=== PATIENT | female | born 1975 ===

== ENCOUNTER 2022-07-04 09:42 | Emergency (ER) | payer BC, SELFPAY ==
--- NOTE | ~2022-07-04 | CT_ITS ---
EXAMINATION: CT HEAD WITHOUT CONTRAST CLINICAL INFORMATION: Status post fall with head strike. COMPARISON: None available. TECHNIQUE: Contiguous axial imaging was performed from the skull base to vertex without intravenous administration of contrast. Coronal and sagittal reformatted images were obtained. This CT examination was performed using dose optimization techniques as appropriate, variously including the following: *Automated exposure control *Adjustment of mA and/or kV according to patient size (this includes techniques or standardized protocols for targeted exams where dose is matched to indication/reason for exam; i.e. extremities or head) *Use of iterative reconstruction technique DLP: 693 mGy-cm FINDINGS: There is mild widening of the cortical sulci and associated ventriculomegaly. The lateral ventricles are symmetrical. The third and fourth ventricles are in their normal midline position. The basilar and prepontine cisterns are unremarkable. Minimal periventricular microvascular changes are seen. There is no acute intra or extracerebral abnormality. There is no mass effect or midline shift. Partial visualization of small subgaleal hematoma in the left high parietal region without acute underlying abnormality. Sections through the bony calvarium are unremarkable. The orbits are intact. The paranasal sinuses are clear. The in left mastoid antrostomy. The mastoid air cells are clear. CT/CT head/brain wo IV con IMPRESSION: 1. No acute intracranial pathology. 2. Partial visualization of small left high parietal subgaleal hematoma without acute underlying abnormality. Correlate with physical exam.
[2022-07-04 09:56] VITALS: BP 132/98; PULSE 112; RESP 19; TEMP 36.7; O2SAT 98; BMI 20.7
[2022-07-04 12:41] LABS: MANUAL DIFF FLAG NO
[2022-07-04 12:45] LABS: Basophils Absolute Auto 0.1 X10*3/uL (0.0-0.2); Basophils Percent Auto 0.8 % (0-2); Hematocrit 31.4 % (37.0-47.0); Imm Gran Abs Auto 0.02 X10*3/uL (0.00-0.03); Imm Gran Pct Auto 0.3 % (0.0-0.4); Lymphocytes Absolute Auto 1.2 X10*3/uL (1.2-4.9); Lymphocytes Percent Auto 19.1 % (20-40); Mean Corpuscular Hemoglobin 33.4 pg (27.0-33.0); Mean Corpuscular Volume 95.4 fL (80.0-98.0); Mean Platelet Volume 9.1 fL (9.4-12.3); Monocytes Absolute Auto 0.5 X10*3/uL (0.1-1.2); Monocytes Percent Auto 7.9 % (2-11); Neutrophils Absolute Auto 4.4 x10*3/uL (2.0-8.3); Neutrophils Percent Auto 71.9 % (45-73); Red Blood Count 3.29 X10*6/uL (4.20-5.50); Red Cell Distribution Width 11.2 % (11.0-16.0); White Blood Count 6.2 X10*3/uL (4.8-10.8)
[2022-07-04 12:59] LABS: Alanine Aminotransferase 84 U/L (0-31); Albumin Level 4.1 g/dL (3.5-5.0); Alkaline Phosphatase 78 U/L (39-117); Anion Gap 18 (12-20); Aspartate Amino Transferase 232 U/L (5-31); Bilirubin Direct 0.2 mg/dL (0.0-0.5); Bilirubin Total 0.6 mg/dL (0.0-1.0); Blood Urea Nitrogen 7 mg/dL (9-16); Calcium 8.5 mg/dL (8.4-10.2); Carbon Dioxide 22 mmol/L (22-29); Chloride 101 mmol/L (96-108); Creatinine Clr Calc Pharmacy 108.5; Estimated Glomerular Filt Rate > 60; Ethanol 360 mg/dL; Glucose Random 88 mg/dL (60-115); Magnesium 1.8 mg/dL (1.6-2.6); Potassium 4.4 mmol/L (3.3-5.1); Sodium 137 mmol/L (135-145); Total Protein 6.3 g/dL (6.5-8.0)
[2022-07-04 13:14] LABS: Platelet Count 86 X10*3/uL (160-400)
[2022-07-04 14:39] VITALS: BP 96/57; PULSE 97; RESP 16; O2SAT 99
--- NOTE | 2022-07-04 15:07 | ED.GENADULT ---
HPI - General Adult General Chief complaint: Fall Stated complaint: fell head lac loss of blood Time Seen by Provider: 07/04/22 12:49 Source: patient, family, RN notes reviewed and old records reviewed Limitations: no limitations History of Present Illness HPI narrative: 47 years old female is here today after sustaining fall. Patient's reports that she was drinking last night and fell, hit back of her head on wooden coffee table. Patient was able to get herself to bed. Family in to check on her today and found large amount of blood next to the coffee table. Patient reports headache. Denies any nausea or vomiting. Patient reports that she has been drinking on and off since 2018 after coming back from rehab. Patient reports that she drinks wine. Patient denies any abdominal pain or discomfort. Denies any diarrhea, melena, hematochezia, unintentional weight loss or ribbon like stools. Patient denies any dyspepsia, dysphagia or odynophagia. Patient denies any fever or chills. Denies presyncope, syncope, chest pain or shortness of breath with or without exertion. Onset (ago): hour(s) Related Data Allergies Allergy/AdvReac Type Severity Reaction Status Date / Time Unable to Assess Allergy Unverified 07/04/22 12:28 Review of Systems Review of Systems: Review of systems Constitutional : No Weight loss, No Fever, No Chills, No Night Sweats, No Fatigue, No Malaise ENT/Mouth : No Hearing loss, No Ear Pain, No Nasal Congestion, No Sinus Pain, No Hoarseness, No sore throat, No Rhinorrhea, No Swallowing Difficulty Eyes: No Eye Pain, No Swelling, No Redness, No Foreign Body, No Discharge, No Vision Changes Cardiovascular : No Chest Pain, No SOB, No Dyspnea on Exertion, No Orthopnea, No Edema, No Palpitations Respiratory : No Cough, No Sputum, No Wheezing, No Smoke Exposure, No Dyspnea Gastrointestinal : No Nausea, No Vomiting, No Diarrhea, No Constipation, No abdominal Pain, No Hematochezia, No Melena Genitourinary : no irregular bleeding, No Dysuria, No Urinary Frequency, No Hematuria, No Urinary Incontinence, No Urgency, No Flank Pain, No Urinary Flow Changes, No Hesitancy Musculoskeletal : No joint pain, No Myalgias, No Joint Swelling Skin : No Skin Lesions, No rash, posterior head lack Neuro : No Weakness, No Numbness, No Paresthesias, No Loss of Consciousness, No Dizziness, No Headache Psych : No Anxiety/Panic, Depression, No SI/HI/AH/VH, No Social Issues, Heme/Lymph: No Bruising, No Bleeding,No Lymphadenopathy Endocrine : No Polyuria, No Polydipsia, No Temperature Intolerance [facility] Social History Social History Advance Directives: No Physical Exam ED Vital Signs: Vital Signs - 24 hr 07/04/22 09:56 07/04/22 14:39 07/04/22 15:14 Temperature 98.1 F Pulse Rate 112 H 97 89 Respiratory Rate 19 16 16 Blood Pressure 132/98 H 96/57 L 113/77 Pulse Oximetry 98 99 100 Oxygen Delivery Method Room Air Room Air Room Air BMI result Body Mass Index 20.7 Const Other: Physical assessment Appearance: Alert. Oriented X3. No acute distress.?? Head: 6 cm laceration to posterior head, No Evans signs noted. No raccoon eyes noted Eyes: PERRLA. EOMI. Conjunctiva and sclera normal. Eyelids normal.?? ENT: EAC normal. TM's Normal. Pharynx normal. Uvula midline. Moist mucous membranes. ? No trismus noted.? No drooling noted.? No muffled voice noted. Neck: Normal inspection. Neck supple. FROM. No adenopathy. Thyroid Normal. No meningeal signs. No neck mass noted. CVS: Normal heart rate and rhythm. Heart sound normal. No murmurs noted. Pulses normal throughout. Respiratory: No respiratory distress. Painless inspiration. Breath sounds normal. No wheezes/rales/rhonchi noted. Chest nontender. ? No accessory muscle usage noted or decreased air movement noted. Abdomen: Soft and nontender. Bowel sounds normal in all 4 quadrants. No distention noted.? No organomegaly noted.? No visible injury noted. Back:? No CVA tenderness.? Full range of motion noted. Skin: Skin warm and dry.? Normal skin color.? Normal skin turgor. No rashes/lesions/lacerations noted. Extremities: No lower extremity edema. ? Extremities exhibit normal range of motion.? Extremities nontender. Neuro: Oriented X 3.? No motor deficit.? No sensory deficit.? Reflexes normal. Course Course Course Narrative: 47 years old female is here today after sustaining fall. Patient's reports that she was drinking last night and fell, hit back of her head on wooden coffee table. Patient was able to get herself to bed. Family in to check on her today and found large amount of blood next to the coffee table. Patient reports headache. Denies any nausea or vomiting. Patient reports that she has been drinking on and off since 2018 after coming back from rehab. Patient reports that she drinks wine. Patient denies any abdominal pain or discomfort. Denies any diarrhea, melena, hematochezia, unintentional weight loss or ribbon like stools. Patient denies any dyspepsia, dysphagia or odynophagia. Patient denies any fever or chills. Denies presyncope, syncope, chest pain or shortness of breath with or without exertion. Will check basic labs CBC, chemistry, alcohol level, tao Reevaluation(s) Reevaluation #1: ETOH 360, AST 2-3 2, ALT 84. Normal kidney function. Mild anemia. Patient denies rectal bleed. Continues to have no abdominal pain. Awaiting CT scan results. Eight tao to posterior head Reevaluation #2: Patient tolerated p.o. fluids denies any nausea or vomiting. Patient denies any headache. Patient's sister will be taking her home. List of detox places will be given to the patient. Patient was encouraged to stop drinking and return to emergency department if she has blurry vision, headache, dizziness, confusion, syncope. Procedures Laceration Laceration 1: Site: scalp and other (Posterior) Size (cm): 6 Description: linear and clean Depth: simple, single layer Pre-repair: wound explored Skin layer closed with: other (8 [place] ) Medical Decision Making Medical Decision Making MDM Narrative: 47 years old female is here today after sustaining fall. Patient's reports that she was drinking last night and fell, hit back of her head on wooden coffee table. Patient was able to get herself to bed. Family in to check on her today and found large amount of blood next to the coffee table. Patient reports headache. Denies any nausea or vomiting. Patient reports that she has been drinking on and off since 2018 after coming back from rehab. Patient reports that she drinks wine. Patient denies any abdominal pain or discomfort. Denies any diarrhea, melena, hematochezia, unintentional weight loss or ribbon like stools. Patient denies any dyspepsia, dysphagia or odynophagia. Patient denies any fever or chills. Denies presyncope, syncope, chest pain or shortness of breath with or without exertion. Will check basic labs CBC, chemistry, alcohol level, tao Differential Diagnosis Differential Diagnoses: The differential diagnosis associated with the presentation includes Acute head bleed, contusion Lab Data MDM Lab Attestation statement: I reviewed the patient's lab results. 07/04/22 12:35 07/04/22 12:35 Labs: Lab Results 07/04/22 07/04/22 07/04/22 Range/Units 12:35 12:35 15:46 WBC 6.2 (4.8-10.8) X10*3/uL RBC 3.29 L (4.20-5.50) X10*6/uL Hgb 11.0 L (12.0-16.0) g/dl Hct 31.4 L (37.0-47.0) % MCV 95.4 (80.0-98.0) fL MCH 33.4 H (27.0-33.0) pg MCHC 35.0 (31.0-35.0) g/dl RDW 11.2 (11.0-16.0) % Plt Count 86 L (160-400) X10*3/uL MPV 9.1 L (9.4-12.3) fL Immature Gran % (Auto) 0.3 (0.0-0.4) % Neut % (Auto) 71.9 (45-73) % Lymph % (Auto) 19.1 L (20-40) % Armstrong % (Auto) 7.9 (2-11) % Eos % (Auto) 0.0 (0-4) % Baso % (Auto) 0.8 (0-2) % Lymph # (Auto) 1.2 (1.2-4.9) X10*3/uL Armstrong # (Auto) 0.5 (0.1-1.2) X10*3/uL Eos # (Auto) 0.0 (0.0-0.4) X10*3/uL Baso # (Auto) 0.1 (0.0-0.2) X10*3/uL Abs Immat Gran (auto) 0.02 (0.00-0.03) X10*3/uL Absolute Neuts (auto) 4.4 (2.0-8.3) x10*3/uL Absolute Nucleated RBC 0.000 (0.0-0.012) X10*3/uL Nucleated RBC % (auto) 0.0 (0.0-0.2) /100WBC Sodium 137 (135-145) mmol/L Potassium 4.4 (3.3-5.1) mmol/L Chloride 101 (96-108) mmol/L Carbon Dioxide 22 (22-29) mmol/L Anion Gap 18 (12-20) BUN 7 L (9-16) mg/dL Creatinine 0.58 (0.5-1.4) mg/dL Estim Creat Clear Calc 108.5 Estimated GFR > 60 Random Glucose 88 (60-115) mg/dL Calcium 8.5 (8.4-10.2) mg/dL Magnesium 1.8 (1.6-2.6) mg/dL Total Bilirubin 0.6 (0.0-1.0) mg/dL Direct Bilirubin 0.2 (0.0-0.5) mg/dL AST 232 H (5-31) U/L ALT 84 H (0-31) U/L Alkaline Phosphatase 78 (39-117) U/L Total Protein 6.3 L (6.5-8.0) g/dL Albumin 4.1 (3.5-5.0) g/dL Urine Opiates Screen Not Detected (Not Detect) Urine Fentanyl Screen Not Detected (Not Detect) Ur Barbiturates Screen Not Detected (Not Detect) Ur Phencyclidine Scrn Not Detected (Not Detect) Ur Amphetamines Screen Not Detected (Not Detect) U Benzodiazepines Scrn Not Detected (Not Detect) Urine Cocaine Screen Not Detected (Not Detect) U Marijuana (THC) Screen Not Detected (Not Detect) Ethyl Alcohol 360 H* mg/dL Independent Interpretation I performed an independent interpretation of an: CT Scan (Head) Radiology Impression Discussion of test interpretation with radiology: I have reviewed the radiologist's reading. Radiologist Impression: FINDINGS: There is mild widening of the cortical sulci and associated ventriculomegaly. The lateral ventricles are symmetrical. The third and fourth ventricles are in their normal midline position. The basilar and prepontine cisterns are unremarkable. Minimal periventricular microvascular changes are seen. There is no acute intra or extracerebral abnormality. There is no mass effect or midline shift. Partial visualization of small subgaleal hematoma in the left high parietal region without acute underlying abnormality. Sections through the bony calvarium are unremarkable. The orbits are intact. The paranasal sinuses are clear. The in left mastoid antrostomy. The mastoid air cells are clear. CT/CT head/brain wo IV con IMPRESSION: 1.? No acute intracranial pathology. 2.? Partial visualization of small left high parietal subgaleal hematoma without acute underlying abnormality. Correlate with physical exam. Discharge Plan Discharge Clinical Impression: Head injury, acute, without loss of consciousness, Fall against object, EtOH dependence Patient Disposition: Home, Self-Care Instructions: Head Injury (ED), Alcohol Withdrawal (ED), Alcohol Dependence (ED) Additional Instructions: You were seen here today after falling and hitting your had. You had very high alcohol level. Eight tao was placed to close youe laceration. Make sure you keep the area clean and dry. Return to ED if any of the tao will come lose or fall out. You may return to ED in 10 days to remove the tao. Please make sure that you apply ice for the next 72 hours to the area. Your liver enzymes were also elevated. Please make sure that you try to stop drinking alcohol. We will be giving you detox places you can go and detox properly. Please return to ED if you will have any nausea, vomiting, double vision, dizziness, presyncope, syncopy or any other concerning symptoms. Referrals: Radha Hua MD [Primary Care Provider] - Interventions: ED Discharge Assessment Last Done: 07/04/22 16:20 Discharge Date/Time: 07/04/22 16:24
[2022-07-04 15:14] VITALS: BP 113/77; PULSE 89; RESP 16; O2SAT 100
[2022-07-04 16:06] LABS: Amphetamine Screen Urine Not Detected (Not Detect); Barbiturates, Urine Not Detected (Not Detect); Benzodiazepines Screen Urine Not Detected (Not Detect); Cannabinoid Screen Urine Not Detected (Not Detect); Cocaine Screen Urine Not Detected (Not Detect); Fentanyl, urine Not Detected (Not Detect); Opiate Screen Urine Not Detected (Not Detect); Phencyclidine Screen Urine Not Detected (Not Detect)
== END 2022-07-04 16:24 | disposition home or self-care (01) ==
PROVIDERS: Physician Assistant; Emergency Provider Emergency Medicine; PCP Internal Medicine
DX: S09.90XA Unspecified injury of head, initial encounter (principal); R51.9 Headache, unspecified; F10.29 Alcohol dependence with unspecified alcohol-induced disorder; Y90.8 Blood alcohol level of 240 mg/100 ml or more; W01.10XA Fall on same level from slipping, tripping and stumbling with subsequent striking against unspecified object, initial encounter; Y93.9 Activity, unspecified; Y92.9 Unspecified place or not applicable; Y99.9 Unspecified external cause status; Z79.899 Other long term (current) drug therapy; Z71.41 Alcohol abuse counseling and surveillance of alcoholic
CPT/HCPCS: 36415; 70450; 80048; 80076; 80307; 82077; 83735; 85025; 99284

== ENCOUNTER 2022-07-19 09:48 | Emergency (ER) | payer BC, SELFPAY ==
[2022-07-19 09:49] VITALS: BP 150/101; PULSE 100; RESP 18; TEMP 36.8; O2SAT 98; BMI 21.2
--- NOTE | 2022-07-19 09:55 | ED_ITS ---
HPI - General Adult General Chief complaint: General Medical Stated complaint: Suture Removal Time Seen by Provider: 07/19/22 09:51 History of Present Illness HPI narrative: Patient presents for staple removal from scalp for wound sustained 3 weeks ago Denies any redness denies any pain denies any discharge from wound no complaints Related Data Allergies Allergy/AdvReac Type Severity Reaction Status Date / Time Sulfa (Sulfonamide Allergy Hives Verified 07/19/22 09:50 Antibiotics) PMFSH Past Medical History Source: nursing notes reviewed Physical Exam ED Vital Signs: Vital Signs - 24 hr 07/19/22 09:49 Temperature 98.3 F Pulse Rate 100 Respiratory Rate 18 Blood Pressure 150/101 H Pulse Oximetry 98 Oxygen Delivery Method Room Air BMI result Body Mass Index 21.2 General appearance no distress comp cooperative The scalp is examined the tao are in place there is no surrounding erythema no swelling no discharge no evidence of infection Course Course Course Narrative: [place] are easily removed with no wound dehiscence Discharge Plan Discharge Clinical Impression: Removal of tao Patient Disposition: Home, Self-Care Additional Instructions: No sign of any infection [place] removed, okay all activities
--- NOTE | 2022-07-20 01:39 | PC.NURSE ---
student services director reviewing charts, it appears pt was discharged by JILLIAN Collier 07.19.22 around or about 1000.
== END 2022-07-19 10:00 | disposition home or self-care (01) ==
PROVIDERS: Emergency Provider Emergency Medicine; PCP Internal Medicine
DX: Z48.02 Encounter for removal of sutures (principal)
CPT/HCPCS: 99282

== ENCOUNTER 2022-09-18 11:20 | Emergency (ER) | payer BC, SELFPAY ==
[2022-09-18 11:24] VITALS: BP 152/102; PULSE 118; RESP 18; TEMP 37.1; O2SAT 97; BMI 21.9
--- NOTE | 2022-09-18 11:24 | ED_ITS ---
HPI - Head Injury General Chief complaint: General Medical Stated complaint: Memory Loss S/P Head Injury Time Seen by Provider: 09/18/22 14:49 Source: patient and family (Father, Don) Mode of arrival: ambulatory Limitations: no limitations History of Present Illness HPI Narrative: 47-year-old female who presents emergency department for evaluation of alcohol use disorder. The patient is here with her father. The father is concerned the patient is having difficulty with her thought process and is concerned that she is continuing to drink heavily. The patient was recently in detox at [place] but since getting out continue to drink alcohol. She states she drinks at least 5 glasses of wine per day and she was drinking earlier today. The patient states that she has been on naloxone in the past and this has helped her cravings but she states that she was not compliant with the medication and continue to drink alcohol. The patient did have a head injury and fall in June 2022 and was seen here in the emergency department with a negative CT scan. Patient denied headache, nausea, vomiting, chest pain, shortness of breath, fever, chills. Related Data Allergies Allergy/AdvReac Type Severity Reaction Status Date / Time Sulfa (Sulfonamide Allergy Hives Verified 07/19/22 09:50 Antibiotics) Review of Systems Review of Systems: Yes all other systems are reviewed and are negative [facility] Past Medical History Attestation statement: The following information was validated with the patient. [facility] Narrative: Past medical history: Alcohol use disorders. Social history: The patient admits to drinking alcohol this morning using drink alcohol daily. Social History Social History Alcohol intake: current Alcohol intake frequency: 3 or more drinks per day Smoked in Last 30 Days: Yes Use of substances other than those prescribed or required for medical reasons: No Advance Directives: No Advance Directives Information Provided: Yes Physical Exam Vital Signs: Vital Signs: Last Vital Signs Temp 98.7 F 09/18/22 11:24 Pulse 120 H 09/18/22 14:45 Resp 18 09/18/22 14:45 BP 159/110 H 09/18/22 14:45 Pulse Ox 97 09/18/22 14:45 O2 Del Method Room Air 09/18/22 14:45 BMI result Body Mass Index 21.9 Vital signs revealed an elevated pulse of 120 and elevated blood pressure of 159/110. General: Awake, alert, female patient she is very anxious, she is agitated, she does not want to be in the emergency department. She kept telling me that she needs to leave to slate picker her daughter. Head: Normocephalic atraumatic Respiratory: Patient does not appear to be in respiratory distress Neuro: Patient is able stand and walk in the emergency department, her gait is normal. Course Course Course Narrative: RME: 47yo F w/no sig PMHx c/o head injury 1mos ago requiring 8 tao, followed by going to detox, now father reports patient not acting herself. Patient c/o diffuse myalgias. Admits is still currently drinking, admits to 4 glasses of wine daily, last drink this AM. +hx ETOH withdrawal, denies seizures. is interested in help, not necessarily detox. denies SI appears intoxicated labs, UA, TORRES, CARE team consult ordered Full HPI, ROS and PE to be performed by primary ED provider. Medical Decision Making Medical Decision Making [facility] Narrative: 47-year-old female who was brought to the emergency department by her father for evaluation of alcohol use disorder. Father is concerned that the patient is having disordered thoughts but he also is aware that she is drinking daily. The patient's examination was unremarkable. Patient's laboratory evaluation revealed a low platelet count of a [id number]. Patient an elevated AST and ALT of 125 and 66-she has had similar elevations in the past most likely caused by her alcohol use disorder. Patient's blood ethanol level was 406. I did discuss these abnormalities with the patient and the patient's father. The father was asking if there is a medication that would help reduce the patient's craving however I told both of them that these medications do not work unless the patient can achieve sobriety. Given the significant amount of alcohol the patient drinks and the fact that she had such a high alcohol level was still functioning, she has a significant alcohol use disorder therefore she will need to get into a detox program that can help her withdrawal. The father asked me to sign the patient's family medical leave paperwork and I did do this. The patient became very anxious and walked out of the emergency department ho wever she is not driving and her father brought her to the emergency department and he states that he will drive her home. Differential Diagnosis Differential diagnosis includes was not limited to electrolyte abnormality, anemia, alcohol intoxication Lab Data [facility] Lab Attestation statement: I reviewed the patient's lab results. See MDM 09/18/22 11:41 09/18/22 11:41 Labs: Lab Results 09/18/22 09/18/22 09/18/22 Range/Units 11:41 11:41 11:41 WBC 7.9 (4.8-10.8) X10*3/uL RBC 4.46 D (4.20-5.50) X10*6/uL Hgb 14.5 D (12.0-16.0) g/dl Hct 41.7 D (37.0-47.0) % MCV 93.5 (80.0-98.0) fL MCH 32.5 (27.0-33.0) pg MCHC 34.8 (31.0-35.0) g/dl RDW 11.9 (11.0-16.0) % Plt Count 139 L D (160-400) X10*3/uL MPV 9.7 (9.4-12.3) fL Immature Gran % (Auto) 0.1 (0.0-0.4) % Neut % (Auto) 67.0 (45-73) % Lymph % (Auto) 25.8 (20-40) % [place] % (Auto) 6.0 (2-11) % Eos % (Auto) 0.5 (0-4) % Baso % (Auto) 0.6 (0-2) % Lymph # (Auto) 2.0 (1.2-4.9) X10*3/uL [place] # (Auto) 0.5 (0.1-1.2) X10*3/uL Eos # (Auto) 0.0 (0.0-0.4) X10*3/uL Baso # (Auto) 0.1 (0.0-0.2) X10*3/uL Abs Immat Gran (auto) 0.01 (0.00-0.03) X10*3/uL Absolute Neuts (auto) 5.3 (2.0-8.3) x10*3/uL Absolute Nucleated RBC 0.000 (0.0-0.012) X10*3/uL Nucleated RBC % (auto) 0.0 (0.0-0.2) /100WBC Sodium 141 (135-145) mmol/L Potassium 4.3 (3.3-5.1) mmol/L Chloride 103 (96-108) mmol/L Carbon Dioxide 22 (22-29) mmol/L Anion Gap 20 (12-20) BUN 8 L (9-16) mg/dL Creatinine 0.65 (0.5-1.4) mg/dL Estim Creat Clear Calc 85.5 Estimated GFR > 60 Random Glucose 105 (60-115) mg/dL Calcium 9.5 D (8.4-10.2) mg/dL Magnesium 2.1 (1.6-2.6) mg/dL Total Bilirubin 0.6 (0.0-1.0) mg/dL Direct Bilirubin 0.2 (0.0-0.5) mg/dL AST 125 H (5-31) U/L ALT 66 H (0-31) U/L Alkaline Phosphatase 83 (39-117) U/L Total Protein 7.9 (6.5-8.0) g/dL Albumin 4.7 (3.5-5.0) g/dL Lipase 49 (8-78) U/L Urine Color Urine Appearance Urine pH (5.0-9.0) Ur Specific [place] (1.005-1.025) Urine Protein (Neg-Trace) mg/dL Urine Glucose (UA) (Negative) mg/dL Urine Ketones (Negative) mg/dL Urine Blood (Negative) Urine Nitrite (Negative) Ur Leukocyte Esterase (Negative) Urine RBC (0-2) /HPF Urine WBC (0-5) /HPF Ur Squamous Epith Cells (0-2) /HPF Urine Bacteria (None Seen) Hyaline Casts (0-2) /LPF Urine Test (NEGATIVE) Urine Opiates Screen (Not Detect) Urine Fentanyl Screen (Not Detect) Ur Barbiturates Screen (Not Detect) Ur Phencyclidine Scrn (Not Detect) Ur Amphetamines Screen (Not Detect) U Benzodiazepines Scrn (Not Detect) Urine Cocaine Screen (Not Detect) U Marijuana (THC) Screen (Not Detect) Ethyl Alcohol 406 H* mg/dL 09/18/22 09/18/22 09/18/22 Range/Units 11:41 11:41 11:41 WBC (4.8-10.8) X10*3/uL RBC (4.20-5.50) X10*6/uL Hgb (12.0-16.0) g/dl Hct (37.0-47.0) % MCV (80.0-98.0) fL MCH (27.0-33.0) pg MCHC (31.0-35.0) g/dl RDW (11.0-16.0) % Plt Count (160-400) X10*3/uL MPV (9.4-12.3) fL Immature Gran % (Auto) (0.0-0.4) % Neut % (Auto) (45-73) % Lymph % (Auto) (20-40) % [place] % (Auto) (2-11) % Eos % (Auto) (0-4) % Baso % (Auto) (0-2) % Lymph # (Auto) (1.2-4.9) X10*3/uL [place] # (Auto) (0.1-1.2) X10*3/uL Eos # (Auto) (0.0-0.4) X10*3/uL Baso # (Auto) (0.0-0.2) X10*3/uL Abs Immat Gran (auto) (0.00-0.03) X10*3/uL Absolute Neuts (auto) (2.0-8.3) x10*3/uL Absolute Nucleated RBC (0.0-0.012) X10*3/uL Nucleated RBC % (auto) (0.0-0.2) /100WBC Sodium (135-145) mmol/L Potassium (3.3-5.1) mmol/L Chloride (96-108) mmol/L Carbon Dioxide (22-29) mmol/L Anion Gap (12-20) BUN (9-16) mg/dL Creatinine (0.5-1.4) mg/dL Estim Creat Clear Calc Estimated GFR Random Glucose (60-115) mg/dL Calcium (8.4-10.2) mg/dL Magnesium (1.6-2.6) mg/dL Total Bilirubin (0.0-1.0) mg/dL Direct Bilirubin (0.0-0.5) mg/dL AST (5-31) U/L ALT (0-31) U/L Alkaline Phosphatase (39-117) U/L Total Protein (6.5-8.0) g/dL Albumin (3.5-5.0) g/dL Lipase (8-78) U/L Urine Color Yellow Urine Appearance Clear Urine pH 5.5 (5.0-9.0) Ur Specific [place] 1.010 (1.005-1.025) Urine Protein Trace (Neg-Trace) mg/dL Urine Glucose (UA) Negative (Negative) mg/dL Urine Ketones Negative (Negative) mg/dL Urine Blood Trace H (Negative) Urine Nitrite Negative (Negative) Ur Leukocyte Esterase Negative (Negative) Urine RBC 0-2 (0-2) /HPF Urine WBC 0-5 (0-5) /HPF Ur Squamous Epith Cells 3-5 (0-2) /HPF Urine Bacteria 1+ (None Seen) Hyaline Casts 0-2 (0-2) /LPF Urine Test NEGATIVE (NEGATIVE) Urine Opiates Screen Not Detected (Not Detect) Urine Fentanyl Screen Not Detected (Not Detect) Ur Barbiturates Screen Not Detected (Not Detect) Ur Phencyclidine Scrn Not Detected (Not Detect) Ur Amphetamines Screen Not Detected (Not Detect) U Benzodiazepines Scrn Not Detected (Not Detect) Urine Cocaine Screen Not Detected (Not Detect) U Marijuana (THC) Screen Not Detected (Not Detect) Ethyl Alcohol mg/dL Independent Historian Clinical information obtained from an independent historian. History obtained from or confirmed by: Parent (Father) Discharge Plan Discharge Clinical Impression: Alcohol intoxication, Alcohol use disorder Patient Disposition: Home, Self-Care Instructions: Abuse of Alcohol (ED) Additional Instructions: At this time, I do not think that you need a CT scan of your head Your blood work was unremarkable except for an alcohol level of 400. The legal limit of intoxication is 80. Your high level of alcohol in your blood suggest that you have a pretty significant addiction to alcohol and that in order to stop drinking you should get into an alcohol detox program that can help you with withdrawal symptoms. You should consider attending daily AA meetings. There is an AA meeting that is on Zoom meeting in [place] that needs at 07:30 in the morning, consider joining this group to try to get help with your addiction. You should also consider getting on Naloxone(Evzio) which is a monthly i ntramuscular injection which could help reduce your craving once you get sober Follow-up with your doctor in 2 days. Please return to the emergency department if your symptoms get worse or if you develop any symptoms that are concerning to you.
[2022-09-18 11:47] LABS: MANUAL DIFF FLAG NO
[2022-09-18 11:49] LABS: UPreg QC Valid YES
[2022-09-18 11:52] LABS: Urine Pregnancy NEGATIVE (NEGATIVE)
[2022-09-18 12:00] LABS: Appearance Urine Clear; Color Urine Yellow; Glucose Urine UA Negative (Negative); Leukocyte Esterase Urine Negative (Negative); Nitrite Urine Negative (Negative); PH 5.5 (5.0-9.0); UMIC TRIGGER UACC YES; Urine Blood Trace (Negative); Urine Ketones Negative (Negative); Urine Protein Trace mg/dL (Neg-Trace)
[2022-09-18 12:06] LABS: Bacteria Urine 1+ (None Seen); Basophils Absolute Auto 0.1 X10*3/uL (0.0-0.2); Basophils Percent Auto 0.6 % (0-2); Eosinophils Percent Auto 0.5 % (0-4); Ethanol 406 mg/dL; Hematocrit 41.7 % (37.0-47.0); Hemoglobin 14.5 g/dl (12.0-16.0); Hyaline Casts Urine 0-2 /LPF (0-2); Imm Gran Abs Auto 0.01 X10*3/uL (0.00-0.03); Imm Gran Pct Auto 0.1 % (0.0-0.4); Lymphocytes Percent Auto 25.8 % (20-40); Mean Corpuscular HGB Conc 34.8 g/dl (31.0-35.0); Mean Corpuscular Hemoglobin 32.5 pg (27.0-33.0); Mean Corpuscular Volume 93.5 fL (80.0-98.0); Mean Platelet Volume 9.7 fL (9.4-12.3); Monocytes Absolute Auto 0.5 X10*3/uL (0.1-1.2); Neutrophils Absolute Auto 5.3 x10*3/uL (2.0-8.3); Platelet Count 139 X10*3/uL (160-400); RBC Urine 0-2 /HPF (0-2); Red Blood Count 4.46 X10*6/uL (4.20-5.50); Red Cell Distribution Width 11.9 % (11.0-16.0); WBC Urine 0-5 /HPF (0-5); White Blood Count 7.9 X10*3/uL (4.8-10.8)
[2022-09-18 12:08] LABS: Alanine Aminotransferase 66 U/L (0-31); Albumin Level 4.7 g/dL (3.5-5.0); Alkaline Phosphatase 83 U/L (39-117); Anion Gap 20 (12-20); Aspartate Amino Transferase 125 U/L (5-31); Bilirubin Direct 0.2 mg/dL (0.0-0.5); Bilirubin Total 0.6 mg/dL (0.0-1.0); Blood Urea Nitrogen 8 mg/dL (9-16); Calcium 9.5 mg/dL (8.4-10.2); Carbon Dioxide 22 mmol/L (22-29); Chloride 103 mmol/L (96-108); Creatinine Clr Calc Pharmacy 85.5; Estimated Glomerular Filt Rate > 60; Glucose Random 105 mg/dL (60-115); Lipase 49 U/L (8-78); Magnesium 2.1 mg/dL (1.6-2.6); Potassium 4.3 mmol/L (3.3-5.1); Sodium 141 mmol/L (135-145); Total Protein 7.9 g/dL (6.5-8.0)
[2022-09-18 12:20] LABS: Amphetamine Screen Urine Not Detected (Not Detect); Barbiturates, Urine Not Detected (Not Detect); Benzodiazepines Screen Urine Not Detected (Not Detect); Cannabinoid Screen Urine Not Detected (Not Detect); Cocaine Screen Urine Not Detected (Not Detect); Fentanyl, urine Not Detected (Not Detect); Opiate Screen Urine Not Detected (Not Detect); Phencyclidine Screen Urine Not Detected (Not Detect)
[2022-09-18 14:45] VITALS: BP 159/110; PULSE 120; RESP 18; O2SAT 97
== END 2022-09-18 15:56 | disposition home or self-care (01) ==
PROVIDERS: Physician Assistant; Emergency Provider Emergency Medicine Emergency Medical Services; PCP Internal Medicine
DX: F10.920 Alcohol use, unspecified with intoxication, uncomplicated (principal); Y90.8 Blood alcohol level of 240 mg/100 ml or more; Z91.148 Patient's other noncompliance with medication regimen for other reason
CPT/HCPCS: 36415; 80048; 80076; 80307; 81001; 81003; 81025; 83690; 83735; 85025; 99284

== ENCOUNTER 2022-09-19 08:22 | Emergency (ER) | payer BC, SELFPAY ==
[2022-09-19 08:29] VITALS: BP 124/82; BP 128/90; PULSE 102; PULSE 113; RESP 21; TEMP 37.1; O2SAT 96; BMI 22.9
--- NOTE | 2022-09-19 09:28 | ED.ALCOHOL ---
HPI - Alcohol General Chief Complaint: ETOH/Substance Use Stated Complaint: ETOH intox Time Seen by Provider: 09/19/22 08:34 Source: patient Mode of arrival: EMS History of Present Illness HPI narrative: 47-year-old female with longstanding history of alcohol use disorder and states that she has been in multiple programs, she has tried naltrexone, denies SI/HI, last drink was this morning. 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 Related Data Allergies Allergy/AdvReac Type Severity Reaction Status Date / Time Sulfa (Sulfonamide Allergy Hives Verified 09/19/22 08:37 Antibiotics) Review of Systems Review of Systems: Pertinent positives and negatives as stated in HPI PMFSH Past Medical History Source: nursing notes reviewed Social History Social History Alcohol intake: current Alcohol intake frequency: 3 or more drinks per day Alcohol type: wine Smoked in Last 30 Days: Yes Use of substances other than those prescribed or required for medical reasons: No Advance Directives: No Advance Directives Information Provided: No Physical Exam ED Vital Signs: Vital Signs - 24 hr 09/19/22 08:29 09/19/22 10:00 Temperature 98.7 F 98.4 F Pulse Rate 102 H 109 H Respiratory Rate 21 H 12 Blood Pressure 128/90 H 131/96 H Pulse Oximetry 96 98 Oxygen Delivery Method Room Air Room Air BMI result Body Mass Index 22.9 VITAL SIGNS: Reviewed. GENERAL: Well developed, well nourished, in no acute distress, clinically appears intoxicated although articulate. HEAD: Normocephalic/atraumatic EYES: PERRLA, EOMI EARS: Ext canals without abnormality NOSE: Nares patent bilateral OROPHARYNX: no oral lesions noted, posterior pharynx clear NECK: Supple, no adenopathy LUNGS: Normal breath sounds. No adventitious sounds or accessory muscle use. SpO2<96> CARDIOVASCULAR: Regular rate and rhythm without noted murmurs ABDOMEN: Soft, non-tender, non-distended with bowel sounds. MUSCULOSKELETAL: No tenderness, deformities, or effusions noted on gross inspection. EXTREMITIES: No cyanosis, clubbing or edema. SKIN: Inspection of the skin reveals no rashes NEUROLOGIC: Alert and oriented x 4. Strength and sensation to light touch were grossly intact x 4. 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 Request care team evaluation 1140: Care team spoke with patient at bedside and has arranged for patient to discuss with hold for Jolene regarding a possible partial detox. The appointment is at 13:00, the patient has been informed and is declined the Librium and is otherwise discharged in stable condition to a safe fried which is with her father. Differential Diagnosis Please see the discussion above External Record Review External record reviewed: Prior outpatient labs Medications Administered Discontinued Medications Generic Name Dose Route Start Last Admin Trade Name Freq PRN Reason Stop Dose Admin Chlordiazepoxide HCl 25 mg 09/19/22 10:16 09/19/22 10:33 Chlordiazepoxide Hcl 25 Mg Capsule PO 09/19/22 10:17 Not Given ONCE ONE Discharge Plan Discharge Clinical Impression: Alcoholic intoxication, Alcohol use disorder Patient Disposition: Home, Self-Care Instructions: Alcohol Intoxication (ED), Abuse of Alcohol (ED) Additional Instructions: You have an appointment at 13:00 for further discussion regarding detox from alcohol. Return to the ER for any worsening symptoms. Referrals: Radha Hua MD [Primary Care Provider] -
--- OUTSIDE RECORDS SUMMARY | 2022-09-19 09:39 | XMS_ITS | Continuity of Care Document ---
Author Name Unknown Organization [facility] ter Address [address] [place] [id number]- Care Team Providers Care Flight Reservations Manager Name Role Phone Radha Hua MD Primary Care Physician En[place] [facility] [place]/13/[place] - 05/13/[address] [address]- [facility] Discharge Disposition: A-D/C Walkout Attending Physician: Not on Staff, Attending MD Admitting Physician: Not on Staff, Admitting MD Referring Physician: Not on Staff, Referring MD Allergies, Adverse Reactions, Alerts Substance Reaction Severity Status sulfa drugs Active Immunizations Given and Recorded Vaccine Date Status Refusal Reason tetanus/diphtheria/pertussis, acel(Tdap) 1 06/03/11 Given 1Admin Note: Info sheet date 04/23/2011 Medications ZyrTEC 10 mg oral tablet 1 tablet = 10 mg, By Mouth, Daily, 0 Refills, Maintenance, 10/11/18 14:16:56 EDT Start Date: 10/11/18 Status: Ordered Results Radiology Reports * Exam Date Time Procedure Performing Provider Status 05/13/19 12:54 PM Chest 2 Views Frontal and Lat Shaquille Johnson (Verified) Notes: (Chest 2 Views Frontal and Lat) Reason For Exam: Fever;Cough RESULT: Chest 2 Views Frontal and Lat Chest 2 Views Frontal and Lat Reason: Cough; Fever; Clinical Question(s): Pneumonia; pt reports I can't catch my breath and I'vehad flu-like symptoms for past few days . Pt reports I'm not sure if it's anxiety . Denies any chest pain or tightness. Pt reports hx of depression, but COMPARISON: None. FINDINGS: LINES AND TUBES: None. LUNGS AND PLEURA: Clear lungs. Normal pulmonary vascularity. No pleural effusion. No pneumothorax. HEART, MEDIASTINUM AND HANY: Heart is normal in size. Normal mediastinal and hilar contour. BONES AND SOFT TISSUES: No acute abnormality. A mild levoscoliosis of the thoracic spine. IMPRESSION: No acute abnormality. WSN: [id number] Dictated By: Edison Mejia MD Dictated Date/Time: 05/13/19 1:09 pm Reviewed By: Edison Mejia MD Signed By: Edison Mejia MD Signed Date/Time: 05/13/19 1:09 pm Transcribed By: BONNIE Transcribed Date/Time: 05/13/19 1:08 pm Vital Signs Most recent to oldest [Reference Range]: 1 Oxygen Saturation [94-100 %] 99 % (05/13/19 12:08 PM) Pulse Rate [55-90 bpm] 77 bpm (05/13/19 12:08 PM) Blood Pressure [90-138/55-84 mm Hg] 133/ 79mm Hg (05/13/19 12:08 PM) Temperature [96.8-100.4 DegF] 97.9 DegF (05/13/19 12:08 PM) Mode of Delivery (Oxygen) Room air (05/13/19 12:08 PM) Blood pressure sites Arm, left (05/13/19 12:08 PM) Temperature Route Oral (05/13/19 12:08 PM) Social History Social History Type Response Smoking Status Never (less than 100 in lifetime) entered on: 10/11/18 Sex
--- OUTSIDE RECORDS SUMMARY | 2022-09-19 09:39 | XMS_ITS | Continuity of Care Document ---
Author Name Unknown Organization [facility] ter Address [address] [place] [address]- Care Team Providers Care Asphalt Tamping Machine Operator Name Role Phone Radha Hua MD Primary Care Physician Encounter [facility] Date(s): 04/01/19 - 04/01/[address] [address]- [facility] Attending Physician: Brendan AMPOULE FILLER AND SEALER, Esme Allergies, Adverse Reactions, Alerts Substance Reaction Severity Status sulfa drugs Active Immunizations Given and Recorded Vaccine Date Status Refusal Reason tetanus/diphtheria/pertussis, acel(Tdap) 1 06/03/11 Given 1Admin Note: Info sheet date 04/23/2011 Medications ZyrTEC 10 mg oral tablet 1 tablet = 10 mg, By Mouth, Daily, 0 Refills, Maintenance, 10/11/18 14:16:56 EDT Start Date: 10/11/18 Status: Ordered Social History Social History Type Response Smoking Status Never (less than 100 in lifetime) entered on: 10/11/18 Sex
--- OUTSIDE RECORDS SUMMARY | 2022-09-19 09:39 | XMS_ITS | Continuity of Care Document ---
Author Name Unknown Organization [facility] Address [address] [place] [address]- Care Team Providers Care Television Schedule Coordinator Name Role Phone Radha Hua MD Primary Care Physician [phone] [facility] Date(s): 12/25/21 - 12/25/[address] [address]- Encounter Diagnosis Cough(Final) - 12/25/21 Discharge Disposition: A-D/C Home Attending Physician: Jayde VALENTIN, Jonathan Hong Admitting Physician: Jayde VALENTIN, Jonathan Hong Referring Physician: Not on Staff, Referring MD Allergies, Adverse Reactions, Alerts Substance Reaction Severity Status sulfa drugs Active Immunizations Given and Recorded Vaccine Date Status Refusal Reason tetanus/diphtheria/pertussis, acel(Tdap) 1 06/03/11 Given 1Admin Note: Info sheet date 04/23/2011 Medications Augmentin 875 mg-125 mg oral tablet 1 tablet, By Mouth, Every 12 hours, for 10 days, # 20 tablet, 0 Refills, Acute 01/04/22 12:53:00 EDT, 12/25/21 12:53:00 EDT, Tablet, [id number], Partial fill upon patient request if the prescription is for a schedule II opioid drug., 160, cm,... Start Date: 12/25/21 Stop Date: 01/04/22 Status: Ordered Clindamycin 300 mg, By Mouth, 3 times a day, Maintenance, 12/25/21 9:47:00 EDT Start Date: 12/25/21 Status: Ordered predniSONE 20 mg oral tablet 3 tablet = 60 mg, By Mouth, Daily, for 5 days, # 15 tablet, 0 Refills, Acute 12/30/21 12:52:00 EDT,12/25/21 12:52:00 EDT, Tablet, [id number], Partial fill upon patient request if the prescription is for a schedule II opioid drug., 160, cm, 09... Start Date: 12/25/21 Stop Date: 12/30/21 Status: Ordered ZyrTEC 10 mg oral tablet 1 tablet = 10 mg, By Mouth, Daily, 0 Refills, Maintenance, 10/11/18 14:16:56 EDT Start Date: 10/11/18 Status: Ordered Results Radiology Reports * Exam Date Time Procedure Performing Provider Status 12/25/21 10:14 AM Chest 2 Views Frontal and Lat Jamardejon Jose; Kerry (Verified) Notes: (Chest 2 Views Frontal and Lat) Reason For Exam: Cough RESULT: Chest 2 Views Frontal and Lat Chest 2 Views Frontal and Lat Hx of Present Illness: Congestion. Question pneumonia. COMPARISON: 05/13/2019 FINDINGS: LINES AND TUBES: None. LUNGS AND PLEURA: Clear lungs. Normal pulmonary vascularity. No pleural effusion. No pneumothorax. HEART, MEDIASTINUM AND HANY: Heart is normal in size. Normal mediastinal and hilar contour. BONES AND SOFT TISSUES: No acute abnormality. IMPRESSION: No acute abnormality. WSN: [id number] Ordering Physician: Jonathan Donohue Dictated By: Abdoul Dukes MD Dictated Date/Time: 12/25/21 10:20 a Reviewed By: Abdoul Dukes MD Signed By: Abdoul Dukes MD Signed Date/Time: 12/25/21 10:20 am Transcribed By: BONNIE Transcribed Date/Time: 12/25/21 10:19 am Vital Signs Most recent to oldest [Reference Range]: 1 2 Height 160 cm (12/25/21 9:46 AM) 160 cm (12/25/21 9:44 AM) Weight 56 kg (12/25/21 9:46 AM) 56 kg (12/25/21 9:44 AM) Oxygen Saturation [94-100 %] 97 % (12/25/21 9:44 AM) Pulse Rate [55-90 bpm] 93 bpm *H* (12/25/21 9:44 AM) Body Mass Index [18.5-24.99 kg/m2] 21.88 kg/m2 (12/25/21 9:44 AM) Blood Pressure [90-138/55-84 mm Hg] 148/ 82mm Hg *H* (12/25/21 9:44 AM) Respiratory Rate [16-30 br/min] 18 br/mi n (12/25/21 9:44 AM) Temperature [96.8-100.4 DegF] 96.7 DegF *L* (12/25/21 9:44 AM) Mode of Delivery (Oxygen) Room air (12/25/21 9:44 AM) Blood pressure sites Arm, right (12/25/21 9:44 AM) Temperature Route Temporal (12/25/21 9:44 AM) Dry Weight 56 kg (12/25/21 9:46 AM) 56 kg (12/25/21 9:44 AM) Dry Weight Obtained Via Standing scale (12/25/21 9:44 AM) Social History Social History Type Response Smoking Status Never (less than 100 in lifetime) entered on: 10/11/18 Sex Note * [facility] , CIS S: TRANSCRIBE Abdoul Dukes MD: VERIFY Event Display: Result: Authored Date: Chest 2 Views Frontal and Lat Hx of Present Illness: Congestion. Question pneumonia. COMPARISON: 05/13/2019 FINDINGS: LINES AND TUBES: None. LUNGS AND PLEURA: Clear lungs. Normal pulmonary vascularity. No pleural effusion. No pneumothorax. HEART, MEDIASTINUM AND HANY: Heart is normal in size. Normal mediastinal and hilar contour. BONES AND SOFT TISSUES: No acute abnormality. IMPRESSION: No acute abnormality. WSN: [id number] Ordering Physician: Jonathan Donohue Dictated By: Abdoul Dukes MD Dictated Date/Time: 12/25/21 10:20 a Reviewed By: Abdoul Dukes MD Signed By: Abdoul Dukes MD Signed Date/Time: 12/25/21 10:20 am Transcribed By: BONNIE Transcribed Date/Time: 12/25/21 10:19 am Care Team Personnel Name: Radha Hua MD Address: [address] [place] [id number]
--- OUTSIDE RECORDS SUMMARY | 2022-09-19 09:39 | XMS_ITS | Continuity of Care Document ---
Author Name Unknown Organization [facility] ter Address [address] [place] [id number]- Care Team Providers Care Gym Instructor Name Role Phone Radha Hua MD Primary Care Physician [phone] Encounter [facility] Date(s): 01/19/19 - 04/16/[address] [address]- [facility] Attending Physician: Radha Hua MD Admitting Physician: Radha Hua MD Referring Physician: Radha Hua MD Allergies, Adverse Reactions, Alerts Substance Reaction [...]
[2022-09-19 10:00] VITALS: BP 131/96; PULSE 109; RESP 12; TEMP 36.9; O2SAT 98
--- NOTE | 2022-09-19 10:04 | PC.NURSE ---
pt seen here yesterday for etoh and left without being seen by Sales Service Assistant. she was given a list of detox facilities. pt recently got out of detox and states it didn't do anything for me . she reports that she last drank alcohol 3 days ago and that she only drinks wine but she drinks a lot at a time. pt's CIWA 2, she denies SI/HI. pt currently resting quietly, no apparent distress. will continue to observe.
--- NOTE | 2022-09-19 11:04 | PC.NURSE ---
pt refused Librium states last time I took Librium I couldn't walk, I had to use a walker . NORIS 3. Pt seen by Avionic Technician. her father is at her bedside.
--- NOTE | 2022-09-19 11:10 | PC.NURSE ---
This RN no longer taking care of this pt. Report off to SHASTA Epstein.
--- NOTE | 2022-09-19 11:31 | MHC.RECOVSUP ---
Met with pt in ED9 who is here for ETOH. Pt has history of alcohol use disorder and states that she has been in multiple programs, she has tried naltrexone, denies SI/HI, last drink was this morning. 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 Pt [place] to [place] [facility] [place]. Pt was provided recovery resources and father was provided resources for [facility] [place]. Pt has no other questions or concerns at this time and plans to walk into [facility] at 1pm.
== END 2022-09-19 11:54 | disposition home or self-care (01) ==
PROVIDERS: Emergency Provider Student in an Organized Health Care Education/Training Program; PCP Internal Medicine
DX: F10.220 Alcohol dependence with intoxication, uncomplicated (principal); F10.288 Alcohol dependence with other alcohol-induced disorder; Y90.9 Presence of alcohol in blood, level not specified
CPT/HCPCS: 99284

== ENCOUNTER 2022-09-19 18:44 | Emergency (ER) | payer BC, SELFPAY ==
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
[2022-09-19 18:50] VITALS: BP 149/100; PULSE 117; O2SAT 98
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
[2022-09-19 18:58] VITALS: BP 137/90; PULSE 114; RESP 16; TEMP 36.2; O2SAT 98; BMI 22.9
[2022-09-19 19:35] LABS: VBG HCO3 23 mmol/L (22-26); VBG pCO2 33 mmHg; VBG pH 7.45 (7.32-7.43); VBG pO2 50 mmHg
[2022-09-19 19:40] LABS: Carbon Monoxide POC 7.4 %
[2022-09-19 19:40] LABS: Venous Blood Gas Refer to POC result
[2022-09-19 19:41] LABS: Carbon Monoxide Refer to POC result
[2022-09-19 19:43] LABS: Basophils Percent Auto 0.2 % (0-2); Eosinophils Percent Auto 0.2 % (0-4); Hematocrit 39.2 % (37.0-47.0); Hemoglobin 13.6 g/dl (12.0-16.0); Imm Gran Abs Auto 0.04 X10*3/uL (0.00-0.03); Imm Gran Pct Auto 0.4 % (0.0-0.4); Lymphocytes Absolute Auto 1.4 X10*3/uL (1.2-4.9); Lymphocytes Percent Auto 13.3 % (20-40); MANUAL DIFF FLAG SCAN; Mean Corpuscular HGB Conc 34.7 g/dl (31.0-35.0); Mean Corpuscular Volume 92.2 fL (80.0-98.0); Mean Platelet Volume 10.7 fL (9.4-12.3); Monocytes Absolute Auto 0.5 X10*3/uL (0.1-1.2); Monocytes Percent Auto 5.1 % (2-11); Neutrophils Absolute Auto 8.2 x10*3/uL (2.0-8.3); Neutrophils Percent Auto 80.8 % (45-73); PLT CLUMP 1; Red Blood Count 4.25 X10*6/uL (4.20-5.50); Red Cell Distribution Width 12.1 % (11.0-16.0); SCAN SMEAR FLAG 1
[2022-09-19 19:57] LABS: Alanine Aminotransferase 77 U/L (0-31); Albumin Level 4.7 g/dL (3.5-5.0); Alkaline Phosphatase 85 U/L (39-117); Anion Gap 21 (12-20); Aspartate Amino Transferase 162 U/L (5-31); Bilirubin Direct 0.3 mg/dL (0.0-0.5); Bilirubin Total 0.8 mg/dL (0.0-1.0); Blood Urea Nitrogen 8 mg/dL (9-16); Calcium 8.7 mg/dL (8.4-10.2); Carbon Dioxide 21 mmol/L (22-29); Chloride 102 mmol/L (96-108); Creatinine Clr Calc Pharmacy 84.2; Estimated Glomerular Filt Rate > 60; Ethanol 280 mg/dL; Glucose Random 99 mg/dL (60-115); Potassium 4.1 mmol/L (3.3-5.1); Sodium 140 mmol/L (135-145); Total Protein 7.6 g/dL (6.5-8.0)
[2022-09-19 20:03] LABS: Platelet Count 107 X10*3/uL (160-400); SLIDE REVIEW VERIFIED; White Blood Count 10.2 X10*3/uL (4.8-10.8)
[2022-09-19 20:34] VITALS: BP 132/91; PULSE 97; RESP 18; TEMP 36.8; O2SAT 100
--- NOTE | 2022-09-19 21:19 | PHA.MEDREC ---
Pharmacy Consult ? Medication Reconciliation Pharmacy has completed the medication reconciliation. patient taking 40mg prozac now, no longer on mesalamine (last taken 1 year ago or lactulose). takes tizanidine roughly 4x per month, and clonidine only at bedtime when needed santa
[2022-09-19 22:08] VITALS: BP 130/89; PULSE 99; RESP 18; O2SAT 100
[2022-09-19 22:27] LABS: Carbon Monoxide POC 1.6 %
[2022-09-19 22:28] LABS: Carbon Monoxide Refer to POC result
[2022-09-19 23:39] LABS: Amphetamine Screen Urine Not Detected (Not Detect); Barbiturates, Urine Not Detected (Not Detect); Benzodiazepines Screen Urine Not Detected (Not Detect); Cannabinoid Screen Urine Not Detected (Not Detect); Cocaine Screen Urine Not Detected (Not Detect); Fentanyl, urine Not Detected (Not Detect); Opiate Screen Urine Not Detected (Not Detect); Phencyclidine Screen Urine Not Detected (Not Detect)
== END 2022-09-19 23:37 | disposition home or self-care (01) ==
PROVIDERS: Physician Assistant; Physician Assistant Medical; Emergency Provider Emergency Medicine Emergency Medical Services; PCP Internal Medicine
DX: T59.811A Toxic effect of smoke, accidental (unintentional), initial encounter (principal); Y92.019 Unspecified place in single-family (private) house as the place of occurrence of the external cause; F10.220 Alcohol dependence with intoxication, uncomplicated; Y90.8 Blood alcohol level of 240 mg/100 ml or more; Z79.899 Other long term (current) drug therapy
CPT/HCPCS: 36415; 71046; 80048; 80076; 80307; 82375; 82803; 85025; 99284

== ENCOUNTER 2023-02-12 13:00 | Outpatient (AMB) | payer BC, SELFPAY ==
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
[2023-02-12 13:06] VITALS: BP 146/78; PULSE 88; O2SAT 98
== END 2023-02-12 14:05 | disposition home or self-care (01) ==
PROVIDERS: PCP Internal Medicine; Visit Provider Nurse Practitioner Psychiatric/Mental Health
DX: F10.20 Alcohol dependence, uncomplicated (principal)
CPT/HCPCS: 99214

== ENCOUNTER → 2023-02-12 13:00 | Outpatient (BNVA) | payer BC, SELFPAY | PROVIDERS: PCP Internal Medicine; Visit Provider Nurse Practitioner Family ==

== ENCOUNTER 2023-03-04 13:40 | Outpatient (AMB) | payer BC, SELFPAY ==
--- NOTE | 2023-03-04 13:40 | MHC.AM.SUB ---
Intake Intake Visit Reasons: Nuha Inj Allergies Sulfa (Sulfonamide Antibiotics) Allergy (Verified 02/12/23 13:07) Hives librium Adverse Reaction (Severe, Uncoded 02/12/23 13:27) Weakness PFSH Social History Alcohol intake: current Alcohol intake frequency: 0-2 drinks per day Alcohol type: wine Coding
[2023-03-04 13:55] VITALS: BP 136/90; PULSE 74; O2SAT 98
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
== END 2023-03-04 14:30 | disposition home or self-care (01) ==
PROVIDERS: PCP Internal Medicine; Visit Provider Nurse Practitioner Family
DX: Z32.02 Encounter for pregnancy test, result negative (principal); Z32.01 Encounter for pregnancy test, result positive; F10.20 Alcohol dependence, uncomplicated
CPT/HCPCS: 99213; J2315

== ENCOUNTER → 2023-03-04 13:40 | Outpatient (BNVA) | payer BC, SELFPAY | PROVIDERS: PCP Internal Medicine | DX: F10.20 Alcohol dependence, uncomplicated (principal) | CPT/HCPCS: 81025; 96372 ==

== ENCOUNTER 2023-04-03 14:00 | Outpatient (AMB) | payer BC, SELFPAY ==
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
[2023-04-03 14:28] VITALS: BP 142/96; PULSE 117; O2SAT 96
--- NOTE | 2023-04-03 14:52 | AM.OFFVISNUR ---
Intake Vital Signs 04/03/23 14:28 BP 142/96 H Blood Pressure Location Rt brachial Position Sitting Pulse 117 H Pulse Oximetry (%) 96 Oxygen Delivery Method Room Air Intake Visit Reasons: Nuha Inj Allergies Sulfa (Sulfonamide Antibiotics) Allergy (Verified 03/04/23 13:56) Hives librium Adverse Reaction (Severe, Uncoded 03/04/23 13:56) Weakness Office Meds Vivitrol 380 mg intramuscular suspension,extended release Performing Provider: Genevieve Reddy NP Performing Location: [facility] Administered by: Anat Youngblood RN on 04/03/23 14:52 Dose Route Admin Location Dispensed Lot Number Expiration Date [facility] Cost Estimator 380 mg IM LG 380 mg 2023-1016T 06/28/25 [id number] [place] Comments: Pt tolerated injection well, denies concerns about previous injection. Educated on signs and symptoms of infection, encouraged to call [facility] with any questions or concerns, pt verbalized understanding. Pt to follow up in 4 weeks. Coding Assessment & Plan Assessment & Plan Orders: Orders AMB Naltrexone Injection Today F10.20 - Alcohol dependence, uncomplicated AMB HCG Urine Test Today F10.20 - Alcohol dependence, uncomplicated
== END 2023-04-03 15:29 | disposition home or self-care (01) ==
PROVIDERS: PCP Internal Medicine
DX: F10.20 Alcohol dependence, uncomplicated (principal)

== ENCOUNTER → 2023-04-03 14:00 | Outpatient (BNVA) | payer BC, SELFPAY | PROVIDERS: PCP Internal Medicine | DX: F10.20 Alcohol dependence, uncomplicated (principal) | CPT/HCPCS: 96372; J2315 ==

== ENCOUNTER 2023-05-01 13:57 | Outpatient (AMB) | payer BC, SELFPAY ==
[2023-05-01 14:58] VITALS: BP 132/98
--- NOTE | 2023-05-01 14:58 | AM.OFFVISNUR ---
Intake Vital Signs 05/01/23 14:58 BP 132/98 H Blood Pressure Location Rt brachial Position Sitting Intake Visit Reasons: Nuha Inj Allergies Sulfa (Sulfonamide Antibiotics) Allergy (Verified 03/04/23 13:56) Hives librium Adverse Reaction (Severe, Uncoded 03/04/23 13:56) Weakness Office Meds Vivitrol 380 mg intramuscular suspension,extended release Performing Provider: Genevieve Reddy NP Performing Location: [facility] Administered by: Anat Youngblood RN on 05/01/23 14:29 Dose Route Admin Location Dispensed Lot Number Expiration Date [facility] Commissioning Agent 380 mg IM RG 380 mg [id number] 07/28/25 10964-537-34 [employer] Comments: Pt tolerated injection well, denies concerns about previous injection. Educated on signs and symptoms of infection, encouraged to call [facility] with any questions or concerns, pt verbalized understanding. Coding Assessment & Plan Assessment & Plan Orders: Orders AMB Naltrexone Injection Patient Supplied Today F10.20 - Alcohol dependence, uncomplicated
--- NOTE | 2023-05-01 15:07 | AM.OFFVISNUR ---
Intake Vital Signs 05/01/23 14:58 BP 132/98 H Blood Pressure Location Rt brachial Position Sitting Intake Visit Reasons: [place] Inj Allergies Sulfa (Sulfonamide Antibiotics) Allergy (Verified 03/04/23 13:56) Hives librium Adverse Reaction (Severe, Uncoded 03/04/23 13:56) Weakness Nursing Note Patient is here for 4 week AUD follow up and Vivitrol injection. Patient is alert and oriented and cooperative with care. Pt is much more relaxed than previous visit and reports that work stress has drastically decreased and recovery is going well. Pt report zero alcohol use since New Years Karli and denies cravings. Patient still attending AA meetings for support. Provider appointment scheduled in 4 weeks Office Meds Vivitrol 380 mg intramuscular suspension,extended release Performing Provider: Genevieve Reddy NP Performing Location: [facility] Administered by: Anat Youngblood RN on 05/01/23 14:29 Dose Route Admin Location Dispensed Lot Number Expiration Date [facility] [employer] 380 mg IM RG 380 mg [id number] 07/28/25 26090-285-33 [employer] Comments: Pt tolerated injection well, denies concerns about previous injection. Educated on signs and symptoms of infection, encouraged to call [facility] with any questions or concerns, pt verbalized understanding. Coding Assessment & Plan Assessment & Plan Orders: Orders AMB Naltrexone Injection Patient Supplied Today F10.20 - Alcohol dependence, uncomplicated
== END 2023-05-01 14:40 | disposition home or self-care (01) ==
PROVIDERS: PCP Internal Medicine
DX: F10.20 Alcohol dependence, uncomplicated (principal)

== ENCOUNTER → 2023-05-01 13:57 | Outpatient (BNVA) | payer BC, SELFPAY | PROVIDERS: PCP Internal Medicine | DX: F10.20 Alcohol dependence, uncomplicated (principal) | CPT/HCPCS: 96372; J2315 ==